=== PATIENT | female | born 1995 | race Caucasian/White ===

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

== ENCOUNTER → 2017-10-18 | Outpatient (CLI) | payer OTHER ==
[2017-10-18 13:20] LABS: BASO % 0.2 % (0.0-1.0); EOS # 0.1 10^3/uL (0.0-0.50); EOS % 0.8 % (0.0-3.0); HEMATOCRIT 38.6 % (36.0-47.0); HEMOGLOBIN 13.3 g/dl (12.0-16.0); IMMATURE GRANULOCYTE % 0.3 % (0-3.0); LYMPH # 2.4 10^3/uL (1.5-6.5); LYMPH % 26.5 % (24.0-44.0); MEAN CORPUSCULAR HEMOGLOBIN 29.4 pg (27.0-33.0); MEAN CORPUSCULAR HGB CONC 34.5 g/dl (32.0-36.5); MEAN CORPUSCULAR VOLUME 85.4 fl (80.0-96.0); MONO # 0.6 10^3/uL (0.0-0.8); MONO % 7.1 % (0.0-5.0); NEUTROPHILS # 5.9 10^3/uL (1.8-7.7); NEUTROPHILS % 65.1 % (36.0-66.0); PLATELET COUNT, AUTOMATED 201 10^3/uL (150-450); RED BLOOD COUNT 4.52 10^6/uL (4.00-5.40); RED CELL DISTRIBUTION WIDTH 12.2 % (11.5-14.5)
[2017-10-18 13:55] LABS: RUBELLA IgG QUALITATIVE IMMUNE (IMMUNE)
[2017-10-18 13:56] LABS: HBsAg Prenatal NEGATIVE (NEGATIVE)
[2017-10-18 14:24] LABS: HIV 1&2 SCREEN CENTAUR NEGATIVE (NEGATIVE)
[2017-10-18 15:18] LABS: CHLAMYDIA DNA AMPLIFICATION POSITIVE (NEGATIVE); GC DNA AMPLIFICATION NEGATIVE (NEGATIVE)
== END ==
LOC: M SMT 11:38
DX: Z34.81 Encounter for supervision of other normal pregnancy, first trimester (principal); Z3A.08 8 weeks gestation of pregnancy
CPT/HCPCS: 86762

== ENCOUNTER 2017-12-03 22:41 | Emergency (ER) | payer OTHER ==
[2017-12-04 00:23] LABS: HEMATOCRIT 36.1 % (36.0-47.0); HEMOGLOBIN 12.6 g/dl (12.0-15.5); MEAN CORPUSCULAR HEMOGLOBIN 29.6 pg (27.0-33.0); MEAN CORPUSCULAR HGB CONC 34.9 g/dl (32.0-36.5); MEAN CORPUSCULAR VOLUME 84.7 fl (80.0-96.0); PLATELET COUNT, AUTOMATED 199 10^3/uL (150-450); RED BLOOD COUNT 4.26 10^6/uL (4.00-5.40); RED CELL DISTRIBUTION WIDTH 12.3 % (11.5-14.5)
[2017-12-04 00:48] LABS: HCG, SERUM QUANTITATIVE 26337 MIU/ML
[2017-12-04 01:27] LABS: AMORPHOUS SEDIMENT RFX SMALL (NEGATIVE); KETONE, URINE AUTO RFX NEGATIVE (NEGATIVE); MUCUS, URINE RFX SMALL (NEGATIVE); NITRITE, URINE AUTO RFX NEGATIVE (NEGATIVE); RBC, URINE AUTO RFX 2 /HPF (0-3); SPECIFIC GRAVITY UR AUTO RFX 1.005 (1.002-1.035); SQUAM EPITHELIAL CELL UR AURFX 2 /HPF (0-6); WBC, URINE AUTO RFX 1 /HPF (0-3)
[2017-12-04 01:31] LABS: LEUKOCYTE ESTERASE UR AUTO RFX 1+ (NEGATIVE)
[2017-12-04 01:42] LABS: CHLAMYDIA DNA AMPLIFICATION POSITIVE (NEGATIVE); GC DNA AMPLIFICATION NEGATIVE (NEGATIVE)
== END 2017-12-04 02:41 | disposition home or self-care (01) ==
LOC: M ED 12-04 02:41
DX: O20.9 Hemorrhage in early pregnancy, unspecified (principal); Z3A.15 15 weeks gestation of pregnancy; O99.342 Other mental disorders complicating pregnancy, second trimester; F41.9 Anxiety disorder, unspecified; F33.9 Major depressive disorder, recurrent, unspecified; O99.332 Smoking (tobacco) complicating pregnancy, second trimester; F17.210 Nicotine dependence, cigarettes, uncomplicated
CPT/HCPCS: 76801

== ENCOUNTER 2017-12-21 11:13 | Observation (INO) | payer OTHER ==
[2017-12-21] MEDS: MORPHINE 4 MG/ML 1ML VIAL/SYRINGE (J2270) IV ×3 (12:35→23:36)
[2017-12-21 12:38] LABS: BASO % 0.1 % (0.0-1.0); EOS % 0.3 % (0.0-3.0); HEMATOCRIT 35.2 % (36.0-47.0); HEMOGLOBIN 12.3 g/dl (12.0-15.5); IMMATURE GRANULOCYTE % 0.6 % (0-3.0); LYMPH # 1.5 10^3/uL (1.5-6.5); LYMPH % 12.5 % (24.0-44.0); MEAN CORPUSCULAR HGB CONC 34.9 g/dl (32.0-36.5); MEAN CORPUSCULAR VOLUME 85.9 fl (80.0-96.0); MONO # 0.6 10^3/uL (0.0-0.8); MONO % 4.8 % (0.0-5.0); NEUTROPHILS # 9.8 10^3/uL (1.8-7.7); NEUTROPHILS % 81.7 % (36.0-66.0); PLATELET COUNT, AUTOMATED 177 10^3/uL (150-450); RED CELL DISTRIBUTION WIDTH 12.5 % (11.5-14.5)
[2017-12-21] MEDS ORDERED: ISOVUE-370 76% 100ML VIAL (Q9967) As Ordered (12:43)
[2017-12-21 12:51] LABS: PROTHROMBIN TIME 13.2 SECONDS (12.4-14.5)
[2017-12-21 12:52] LABS: PARTIAL THROMBOPLASTIN TIME 22.2 SECONDS (26.8-37.9)
[2017-12-21 13:01] LABS: ALBUMIN 3.1 GM/DL (3.2-5.2); ALBUMIN/GLOBULIN RATIO 0.89 (1.00-1.93); ALKALINE PHOSPHATASE 51 U/L (45-117); ALT/SGPT 19 U/L (12-78); ANION GAP 7 MEQ/L (8-16); AST/SGOT 19 U/L (7-37); BILIRUBIN,DIRECT < 0.1 MG/DL (0.0-0.2); BILIRUBIN,TOTAL 0.3 MG/DL (0.2-1.0); BLOOD UREA NITROGEN 3 MG/DL (7-18); CALCIUM LEVEL 8.4 MG/DL (8.5-10.1); CARBON DIOXIDE LEVEL 22 MEQ/L (21-32); CHLORIDE LEVEL 110 MEQ/L (98-107); CREATININE FOR GFR 0.39 MG/DL (0.55-1.30); GLUCOSE, FASTING 72 MG/DL (70-100); POTASSIUM SERUM 3.7 MEQ/L (3.5-5.1); SODIUM LEVEL 139 MEQ/L (136-145); TOTAL PROTEIN 6.6 GM/DL (6.4-8.2)
[2017-12-21] MEDS: ACETAMINOPHEN TAB 650MG DOSE (2X325MG) PO (15:45)
[2017-12-21] MEDS: ONDANSETRON 4MG/2ML VIAL (J2405) IV ×2 (16:19→23:35)
[2017-12-21] MEDS: NS 1,000 ML IV ×2 (16:43→23:35)
[2017-12-21] MEDS ORDERED: MORPHINE 4 MG/ML 1ML VIAL/SYRINGE (J2270) IV (21:00)
[2017-12-21] MEDS: FAMOTIDINE 20 MG TAB PO (21:00)
[2017-12-21] MEDS ORDERED: PROMETHAZINE INJ 25 MG/ML VIAL (J2550) IV (21:00)
[2017-12-22] MEDS: MORPHINE 4 MG/ML 1ML VIAL/SYRINGE (J2270) IV ×5 (04:07→18:33)
[2017-12-22 06:03] LABS: HEMATOCRIT 30.3 % (36.0-47.0); HEMOGLOBIN 10.5 g/dl (12.0-15.5); MEAN CORPUSCULAR HEMOGLOBIN 29.7 pg (27.0-33.0); MEAN CORPUSCULAR HGB CONC 34.7 g/dl (32.0-36.5); MEAN CORPUSCULAR VOLUME 85.8 fl (80.0-96.0); PLATELET COUNT, AUTOMATED 166 10^3/uL (150-450); RED BLOOD COUNT 3.53 10^6/uL (4.00-5.40); RED CELL DISTRIBUTION WIDTH 12.7 % (11.5-14.5); WHITE BLOOD COUNT 8.4 10^3/uL (4.0-10.0)
[2017-12-22 06:19] LABS: ANION GAP 9 MEQ/L (8-16); BLOOD UREA NITROGEN 3 MG/DL (7-18); CALCIUM LEVEL 8.2 MG/DL (8.5-10.1); CARBON DIOXIDE LEVEL 21 MEQ/L (21-32); CHLORIDE LEVEL 112 MEQ/L (98-107); CREATININE FOR GFR 0.39 MG/DL (0.55-1.30); GLUCOSE, FASTING 71 MG/DL (70-100); POTASSIUM SERUM 3.4 MEQ/L (3.5-5.1); SODIUM LEVEL 142 MEQ/L (136-145)
[2017-12-22] MEDS: NS 1,000 ML IV ×2 (06:20→13:21)
[2017-12-22] MEDS ORDERED: NORCO, ANEXSIA 5/325MG TABLET (HYDROcodone/ACETAMINOPHEN) PO (08:30)
[2017-12-22] MEDS: FAMOTIDINE 20 MG TAB PO ×2 (08:48→20:05)
[2017-12-22] MEDS: NORCO, ANEXSIA 5/325MG TABLET (HYDROcodone/ACETAMINOPHEN) PO ×3 (08:49→20:06)
[2017-12-22] MEDS: ONDANSETRON 4MG/2ML VIAL (J2405) IV ×2 (11:21→20:10)
[2017-12-23] MEDS: MORPHINE 4 MG/ML 1ML VIAL/SYRINGE (J2270) IV ×4 (00:01→10:59)
[2017-12-23] MEDS: ONDANSETRON 4MG/2ML VIAL (J2405) IV (02:17)
[2017-12-23 05:49] LABS: HEMOGLOBIN 9.8 g/dl (12.0-15.5); MEAN CORPUSCULAR HEMOGLOBIN 30.2 pg (27.0-33.0); MEAN CORPUSCULAR VOLUME 86.2 fl (80.0-96.0); PLATELET COUNT, AUTOMATED 163 10^3/uL (150-450); RED BLOOD COUNT 3.25 10^6/uL (4.00-5.40); RED CELL DISTRIBUTION WIDTH 12.7 % (11.5-14.5); WHITE BLOOD COUNT 7.1 10^3/uL (4.0-10.0)
[2017-12-23 06:08] LABS: ANION GAP 4 MEQ/L (8-16); BLOOD UREA NITROGEN 3 MG/DL (7-18); CALCIUM LEVEL 8.1 MG/DL (8.5-10.1); CARBON DIOXIDE LEVEL 26 MEQ/L (21-32); CHLORIDE LEVEL 110 MEQ/L (98-107); CREATININE FOR GFR 0.39 MG/DL (0.55-1.30); GLUCOSE, FASTING 76 MG/DL (70-100); POTASSIUM SERUM 3.2 MEQ/L (3.5-5.1); SODIUM LEVEL 140 MEQ/L (136-145)
[2017-12-23] MEDS: NORCO, ANEXSIA 5/325MG TABLET (HYDROcodone/ACETAMINOPHEN) PO (08:51)
[2017-12-23] MEDS: FAMOTIDINE 20 MG TAB PO (08:51)
[2017-12-23] MEDS ORDERED: ONDANSETRON 4 MG TAB (S0181) PO (16:00)
[2017-12-23] MEDS ORDERED: PERCOCET 5MG/325MG TAB PO ×2 (16:00)
== END 2017-12-23 16:30 | disposition home or self-care (01) ==
LOC: M ED 11:13 → M ED INP 20:58 → M MS5PR 23:15
DX: O9A.212 Injury, poisoning and certain other consequences of external causes complicating pregnancy, second trimester (principal); O21.9 Vomiting of pregnancy, unspecified; R10.9 Unspecified abdominal pain; S00.81XA Abrasion of other part of head, initial encounter; M25.511 Pain in right shoulder; M25.572 Pain in left ankle and joints of left foot; V48.6XXA Car passenger injured in noncollision transport accident in traffic accident, initial encounter; Y92.410 Unspecified street and highway as the place of occurrence of the external cause; Z3A.18 18 weeks gestation of pregnancy
CPT/HCPCS: J2270

== ENCOUNTER → 2017-12-29 | Outpatient (CLI) | payer OTHER | LOC: M RAD 14:32 | DX: Z36.9 Encounter for antenatal screening, unspecified (principal); Z3A.19 19 weeks gestation of pregnancy | CPT/HCPCS: 76816 ==

== ENCOUNTER → 2018-01-18 | Outpatient (CLI) | payer OTHER | LOC: M RAD 12:03 | DX: Z34.82 Encounter for supervision of other normal pregnancy, second trimester (principal); Z3A.20 20 weeks gestation of pregnancy | CPT/HCPCS: 76816 ==

== ENCOUNTER → 2018-03-02 | Outpatient (CLI) | payer OTHER ==
[2018-03-02 13:51] LABS: HEMOGLOBIN 11.5 g/dl (12.0-15.5); MEAN CORPUSCULAR HEMOGLOBIN 30.5 pg (27.0-33.0); MEAN CORPUSCULAR HGB CONC 33.8 g/dl (32.0-36.5); MEAN CORPUSCULAR VOLUME 90.2 fl (80.0-96.0); PLATELET COUNT, AUTOMATED 200 10^3/uL (150-450); RED BLOOD COUNT 3.77 10^6/uL (4.00-5.40); RED CELL DISTRIBUTION WIDTH 12.4 % (11.5-14.5); WHITE BLOOD COUNT 9.3 10^3/uL (4.0-10.0)
[2018-03-02 14:12] LABS: GLUCOSE CHALLENGE TEST 1 HOUR 95 MG/DL (LESS THAN 140)
== END ==
LOC: M LAB 11:46
DX: Z34.82 Encounter for supervision of other normal pregnancy, second trimester (principal); Z3A.00 Weeks of gestation of pregnancy not specified
CPT/HCPCS: 82950

== ENCOUNTER → 2018-03-08 | Outpatient (REF) | payer OTHER ==
[2018-03-08 22:44] LABS: CHLAMYDIA DNA AMPLIFICATION NEGATIVE (NEGATIVE); GC DNA AMPLIFICATION NEGATIVE (NEGATIVE)
== END ==
LOC: M LAB REF 17:10
DX: Z34.83 Encounter for supervision of other normal pregnancy, third trimester (principal)

== ENCOUNTER → 2018-05-04 | Outpatient (REF) | payer OTHER | LOC: M LAB REF 09:28 | DX: Z34.83 Encounter for supervision of other normal pregnancy, third trimester (principal); Z36.89 Encounter for other specified antenatal screening | CPT/HCPCS: 87081 ==

== ENCOUNTER 2018-05-12 18:22 | Outpatient (CLI) | payer OTHER | END 2018-05-12 19:30 | disposition home or self-care (01) | LOC: M LDO 18:22 | DX: O47.1 False labor at or after 37 completed weeks of gestation (principal); Z3A.37 37 weeks gestation of pregnancy | CPT/HCPCS: 59025 ==

== ENCOUNTER 2018-06-03 07:48 | Inpatient (IN) | payer OTHER ==
[2018-06-03 09:16] LABS: HEMOGLOBIN 12.1 g/dl (12.0-15.5); MEAN CORPUSCULAR HEMOGLOBIN 28.6 pg (27.0-33.0); MEAN CORPUSCULAR HGB CONC 33.6 g/dl (32.0-36.5); MEAN CORPUSCULAR VOLUME 85.1 fl (80.0-96.0); PLATELET COUNT, AUTOMATED 193 10^3/uL (150-450); RED BLOOD COUNT 4.23 10^6/uL (4.00-5.40); RED CELL DISTRIBUTION WIDTH 13.3 % (11.5-14.5); WHITE BLOOD COUNT 10.8 10^3/uL (4.0-10.0)
[2018-06-03] MEDS: LACTATED RINGER'S 1000 ML IV (09:46)
[2018-06-03] MEDS: LR 1,000 ML IV ×2 (09:47→12:38)
[2018-06-03] MEDS ORDERED: FENTANYL 2MCG/ML ROPIVACAINE 0.2% IN 0.9% NACL 200ML IVBAG As Ordered (09:57)
[2018-06-03] MEDS ORDERED: diphenhydrAMINE INJ 50MG/ML VIAL (J1200) IV (11:15)
[2018-06-03] MEDS ORDERED: EPIDURAL/PCA KEYS XX (11:15)
[2018-06-03] MEDS ORDERED: FENTANYL/ROPIVACAINE/NACL BAG 200 ML EPIDURAL (11:15)
[2018-06-03] MEDS ORDERED: EPIDURAL COMMENT XX (11:15)
[2018-06-03] MEDS ORDERED: NALOXONE INJ 0.4 MG/1 ML VIAL (J2310) IV (11:15)
[2018-06-03] MEDS ORDERED: ePHEDrine SULFATE 25 MG/5 ML(5MG/ML) SYRINGE IV (11:15)
[2018-06-03] MEDS ORDERED: REFRIGERATOR IV KEYS XX (11:15)
[2018-06-03 12:35] LABS: AMPHETAMINES URINE REFLEX NEGATIVE (NEGATIVE); BARBITURATES URINE REFLEX NEGATIVE (NEGATIVE); BENZODIAZEPINES URINE REFLEX NEGATIVE (NEGATIVE); COCAINE METABOLITE URINE REFLE NEGATIVE (NEGATIVE); METHADONE URINE REFLEX NEGATIVE (NEGATIVE); OPIATES URINE REFLEX NEGATIVE (NEGATIVE); PHENCYCLIDINE URINE REFLEX NEGATIVE (NEGATIVE)
[2018-06-03] MEDS: OXYTOCIN DRIP 30 UNITS in APPROPRIATE DILUENT 1 EA IV (12:38)
[2018-06-03 13:03] LABS: CANNABINOIDS URINE REFLEX PENDING CONFIRMATION (NEGATIVE)
[2018-06-03] MEDS: ONDANSETRON 4MG/2ML VIAL (J2405) IV (17:03)
[2018-06-03 18:56] LABS: CORD GAS ABE V -7.1; CORD GAS HCO3 V 19.3 MEQ/L; CORD GAS O2 SAT V 68.4 %; CORD GAS PO2 V 29.6 mmHg; CORD GAS SBC V 18.1 MEQ/L; CORD GAS TCO2 V 20.6 MEQ/L
[2018-06-03 19:00] LABS: CORD GAS ABE A -8.5; CORD GAS HCO3 A 21.5 MEQ/L; CORD GAS O2 SAT A < 15.0 %; CORD GAS PCO2 A 62.2 mmHg; CORD GAS PH A 7.156 UNITS; CORD GAS PO2 A 10.6 mmHg; CORD GAS TCO2 A 23.4 MEQ/L
[2018-06-03] MEDS ORDERED: OXYTOCIN DRIP 30 UNITS in APPROPRIATE DILUENT 1 EA IV (19:23)
[2018-06-03] MEDS ORDERED: RHOGAM 300 MCG (1500 IU) INJ (J2790) IM (19:30)
[2018-06-03] MEDS ORDERED: DIBUCAINE 1% OINTMENT 30GM TOP (19:30)
[2018-06-03] MEDS ORDERED: METHYLERGONOVINE MALEATE 0.2 MG TAB PO (19:30)
[2018-06-03] MEDS ORDERED: MEASLES,MUMPS,RUBELLA VACCINE INJ (MMR-II) (90707) SC (19:30)
[2018-06-03] MEDS ORDERED: DOCUSATE SODIUM 100 MG CAP PO (19:30)
[2018-06-04] MEDS: ACETAMINOPHEN 500 MG TAB PO (09:15)
[2018-06-04] MEDS: PRENATAL VITAMINS CHEWABLE TABLET PO (09:15)
[2018-06-04] MEDS ORDERED: FIORICET TAB PO (09:30)
[2018-06-04] MEDS: IBUPROFEN 800 MG TAB PO (19:02)
[2018-06-05] MEDS: PRENATAL VITAMINS CHEWABLE TABLET PO (08:05)
[2018-06-05] MEDS: INFLUENZA QUADRIVALENT PF VACCINE 0.5ML SYRINGE (90686) IM (11:06)
[2018-06-09 08:39] LABS: Cannabinoid Positive (.); GC Carboxy THC 558 ng/mL (Cutoff=10)
== END 2018-06-05 13:10 | disposition home or self-care (01) | DRG 560 ==
LOC: M LDO 07:48 → M LDI 08:28 → M OBS 21:00
PROC: 10E0XZZ Delivery of Products of Conception, External Approach (ICD-10-PCS; principal; 2018-06-03)
PROC: 0HQ9XZZ Repair Perineum Skin, External Approach (ICD-10-PCS; 2018-06-03)
PROC: 10907ZC Drainage of Amniotic Fluid, Therapeutic from Products of Conception, Via Natural or Artificial Opening (ICD-10-PCS; 2018-06-03)
DX: O48.0 Post-term pregnancy (principal); Z3A.41 41 weeks gestation of pregnancy; O69.81X0 Labor and delivery complicated by cord around neck, without compression, not applicable or unspecified; O70.0 First degree perineal laceration during delivery; Z37.0 Single live birth

== ENCOUNTER → 2018-08-03 | Outpatient (REF) | payer OTHER | LOC: M LAB REF 19:06 | DX: Z12.4 Encounter for screening for malignant neoplasm of cervix (principal); R87.612 Low grade squamous intraepithelial lesion on cytologic smear of cervix (LGSIL) | CPT/HCPCS: 88142 ==

== ENCOUNTER 2020-01-06 22:50 | Emergency (ER) | payer OTHER ==
[~2020-01-06] VITALS: Ht 167.6 cm; Wt 95.5 kg
[~2020-01-06 22:50] MED LIST: ACET-683 PO; MOTR200T44 PO; ONDA-83 PO; PERCOCET PO; PRENTAB55 PO
[2020-01-06 23:06] VITALS: BP 134/83
[2020-01-06] MEDS ORDERED: LARI1TAB3 (23:15)
== END 2020-01-06 23:20 | disposition home or self-care (01) ==
LOC: M ED 22:50
DX: F43.20 Adjustment disorder, unspecified (principal); Z63.9 Problem related to primary support group, unspecified; Z91.5 Personal history of self-harm; F33.9 Major depressive disorder, recurrent, unspecified; F41.9 Anxiety disorder, unspecified; Z79.3 Long term (current) use of hormonal contraceptives; Z88.1 Allergy status to other antibiotic agents; F17.210 Nicotine dependence, cigarettes, uncomplicated; F12.20 Cannabis dependence, uncomplicated

== ENCOUNTER → 2020-07-04 | Outpatient (REF) | payer OTHER ==
[~2020-07-04] MED LIST changes: +LARI1TAB3
[2020-07-04 16:09] LABS: HEMATOCRIT 35.5 % (36.0-47.0); HEMOGLOBIN 11.5 g/dl (12.0-15.5); MEAN CORPUSCULAR HGB CONC 32.4 g/dl (32.0-36.5); MEAN CORPUSCULAR VOLUME 89.6 fl (80.0-96.0); PLATELET COUNT, AUTOMATED 181 10^3/uL (150-450); RED BLOOD COUNT 3.96 10^6/uL (4.00-5.40); WHITE BLOOD COUNT 8.1 10^3/uL (4.0-10.0)
[2020-07-04 17:37] LABS: HEPATITIS C VIRUS ABY INDEX 0.1 INDEX (<0.8); HIV 1&2 SCREEN CENTAUR NEGATIVE (NEGATIVE)
== END ==
LOC: M PLALAB 12:30
PROVIDERS: ATTEND Specialist
DX: Z34.81 Encounter for supervision of other normal pregnancy, first trimester (principal); Z3A.00 Weeks of gestation of pregnancy not specified

== ENCOUNTER → 2020-07-05 | Outpatient (CLI) | payer OTHER ==
--- NOTE | 2020-07-05 13:53 | REP ---
INDICATION: ANATOMY. COMPARISON: None. FINDINGS: , Para LMP = weeks days, VANESSA(LMP) = Expected GA/1st sono = weeks days, VANESSA (expected) = Today's sono findings = 21 weeks 1 days, VANESSA (today's sono) = 11/21/2020 Number: 1 Position: Cephalic Heart Rate: 158 BPM S/D Ratio: NA Placental Position: Anterior Placenta Previa: No low Lying: No abruption: No Amniotic Fluid Volume: Within normal limits ROLAND: NA ROLAND: Normal Range: NA cm Cervix Length 3.1 cm, and MEASUREMENTS: BPD: 4.6 cm HC: 16.8 cm AC: 14.6 cm FL: 3.4 cm Estimated Weight: 338 Grams 49 percentile Lateral Ventricle NOT OBTAINED mm Cerebellum not obtained mm = not obtained weeks Normal. The following structures are visualized and are unremarkable: Cranium, cavum, cerebellum, posterior fossa-cisterna magna, choroid plexus, midline falx, lateral ventricles, orbits, face-profile, face-lips/mouth, neck,, diaphragm, stomach, kidneys, bladder, abdominal wall, cord insertion, umbilical arteries, 3-vessel cord, color Doppler, spine and upper and lower extremities. Four-chamber heart and ventricular outflow tracts were suboptimally visualized. IMPRESSION: Follow-up examination recommended for better visualization of four-chamber heart and ventricular outflow tracts. <Electronically signed by Solo Haas > 07/05/20 [id number]
== END ==
LOC: M WHC 11:08
PROVIDERS: ATTEND Specialist
DX: Z34.82 Encounter for supervision of other normal pregnancy, second trimester (principal); Z36.89 Encounter for other specified antenatal screening; Z3A.21 21 weeks gestation of pregnancy

== ENCOUNTER → 2020-07-31 | Outpatient (REF) | payer OTHER | LOC: M PLALAB 16:56 | PROVIDERS: ATTEND Advanced Practice Midwife | DX: Z34.92 Encounter for supervision of normal pregnancy, unspecified, second trimester (principal) ==

== ENCOUNTER → 2020-08-02 | Outpatient (CLI) | payer OTHER | LOC: M WHC 12:04 | PROVIDERS: ATTEND Advanced Practice Midwife | DX: Z34.92 Encounter for supervision of normal pregnancy, unspecified, second trimester (principal); Z3A.00 Weeks of gestation of pregnancy not specified; Z53.9 Procedure and treatment not carried out, unspecified reason ==

== ENCOUNTER → 2020-08-06 | Outpatient (CLI) | payer OTHER ==
--- NOTE | 2020-08-06 15:23 | REP ---
INDICATION: F/U ANATOMY. COMPARISON: 07/05/2020. TECHNIQUE: Real-time sonographic evaluation of the gravid uterus performed. FINDINGS: Estimated gestational age is24 weeks 5 days, EDC 11/21/2020. Today's measurements indicate appropriate growth. Presentation: Oblique Placenta anterior, grade 1, without evidence of placenta previa. heart rate is recorded at 139 beats per minute. Amniotic fluid is subjectively normal. Closed cervical length is measured at 3.7 cm. Biometry chart: BPD: 56 mm, 23 weeks 0 days, percentile. HC: 219 mm, 24 weeks 0 days, 27th percentile AC: 202 mm, 24 weeks 6 days, 52nd percentile Femur length: 44 mm, 24 weeks 4 days, 46th percentile HC to AC ratio: 1.08, normal range 1.02-1.21. Estimated weight: 711g, 35th percentile. On the prior study the four-chamber heart and ventricular outflow tracts were not well visualized. The structures are visualized on today's exam in appear grossly unremarkable. IMPRESSION: Viable single intrauterine gestation as above. <Electronically signed by Travis Rodriguez > 08/06/20 [id number]
== END ==
LOC: M WHC 10:46
PROVIDERS: ATTEND Advanced Practice Midwife
DX: Z34.92 Encounter for supervision of normal pregnancy, unspecified, second trimester (principal); Z3A.24 24 weeks gestation of pregnancy

== ENCOUNTER → 2020-08-30 | Outpatient (REF) | payer OTHER | LOC: M PLALAB 09:22 | PROVIDERS: ATTEND Obstetrics & Gynecology | DX: Z34.93 Encounter for supervision of normal pregnancy, unspecified, third trimester (principal); Z3A.29 29 weeks gestation of pregnancy; Z53.9 Procedure and treatment not carried out, unspecified reason ==

== ENCOUNTER → 2020-08-30 | Outpatient (REF) | payer OTHER | LOC: M SFHCWAGY 17:00 | PROVIDERS: ATTEND Obstetrics & Gynecology | DX: Z3A.29 29 weeks gestation of pregnancy (principal) ==

== ENCOUNTER → 2020-09-06 | Outpatient (REF) | payer OTHER ==
[2020-09-06 15:29] LABS: HEMATOCRIT 32.9 % (36.0-47.0); HEMOGLOBIN 10.4 g/dl (12.0-15.5); MEAN CORPUSCULAR HEMOGLOBIN 29.2 pg (27.0-33.0); MEAN CORPUSCULAR HGB CONC 31.6 g/dl (32.0-36.5); MEAN CORPUSCULAR VOLUME 92.4 fl (80.0-96.0); PLATELET COUNT, AUTOMATED 194 10^3/uL (150-450); RED BLOOD COUNT 3.56 10^6/uL (4.00-5.40); WHITE BLOOD COUNT 9.3 10^3/uL (4.0-10.0)
== END ==
LOC: M PLALAB 11:41
PROVIDERS: ATTEND Advanced Practice Midwife
DX: Z34.92 Encounter for supervision of normal pregnancy, unspecified, second trimester (principal)

== ENCOUNTER → 2020-10-17 | Outpatient (REF) | payer OTHER | LOC: M SFHCPLAZ 19:16 | PROVIDERS: ATTEND Advanced Practice Midwife | DX: Z3A.36 36 weeks gestation of pregnancy (principal) ==

== ENCOUNTER → 2020-10-17 | Outpatient (CLI) | payer OTHER ==
--- NOTE | 2020-10-17 17:19 | REP ---
INDICATION: DEACREASED MOVEMENT , GROWTH. COMPARISON: Comparison study August 06, 2020.. TECHNIQUE: Transabdominal obstetric sonography. FINDINGS: Scanning through the gravid uterus demonstrates a viable single intrauterine gestation in cephalic lie. motion is observed and heart rate is recorded at 121 beats per minute. A anterior placenta is seen, grade 2, without evidence of placenta previa. Closed cervical length is measured at 3.0 cm transabdominally. No extrauterine abnormality is observed. Amniotic fluid is subjectively normal. ROLAND is normal 17.4 cm.. The following anatomic structures are again identified felt to be unremarkable: cranium, right and left kidney, urinary bladder, spine, three-vessel cord.. Biometry chart: BPD 8.3 cm, 33 weeks 2 days Head circumference 31.1 cm, 34 weeks 5 days Abdominal circumference 31.5 cm, 35 weeks 3 days Femur length 6.6 cm, 33 weeks 6 days Humeral length 5.9 cm, 34 weeks 0 days new line HC AC ratio normal 0.99 Cephalic index normal 0.73 Estimated weight 2487 g, 5 lb 7 oz, 19th percentile for 36 weeks 0 days Biophysical profile score 8 out of a possible 8 ROLAND normal 17.4 cm IMPRESSION: Viable single intrauterine gestation at 34 weeks 2 days by today's composite sonographic criteria. VANESSA by today's sonography November 26, 2020. No complication identified. Expected gestational age estimate based on prior sonography is 36 weeks 0 days. VANESSA by prior sonography 14 November 2020. Estimated weight 19th percentile. <Electronically signed by Reid Hernandez > 10/17/20 [id number]
== END ==
LOC: M WHC 15:16
PROVIDERS: ATTEND Advanced Practice Midwife
DX: O36.8130 Decreased fetal movements, third trimester, not applicable or unspecified (principal); Z3A.34 34 weeks gestation of pregnancy

== ENCOUNTER 2020-11-17 17:15 | Inpatient (IN) | payer OTHER ==
[~2020-11-17] VITALS: Ht 167.6 cm; Wt 100.4 kg
[2020-11-17 17:35] VITALS: BP 129/67
[2020-11-17] MEDS ORDERED: IRON65TA2 PO (17:41)
[2020-11-17] MEDS ORDERED: LACTATED RINGER'S 1000 ML IV STA (18:14)
[2020-11-17] MEDS ORDERED: LR 1,000 ML IV SCH (18:14)
--- NOTE | 2020-11-17 18:22 | HPEPDOC ---
Obstetrical History & Physical General Date of Admission Nov 17, 2020 at 18:09 History of Present Illness 25 yo female at 40 3/7 weeks by 21 week ultrasound (EDC=11/14/2020) presents with regular contractions throughout the day. They increased in frequency and intensity. no vaginal bleeding. Chief Complaint: Contractions, term Information Provided By: Patient Age: 25 : 2 Term: 1 Pre-term: 0 Abortions: 0 Livin Care Care: Good Care Dating Final EDC: Nov 14, 2020 Final EDC by: 2nd trimester (US) Antepartum Course Diagnos(e)s Late entry to care. Started 20 weeks 07/2020 treated for Chlamydia Past Medical History Past Obstetrical History : Past Obstetrical History: Multigravida Past Medical History Medical History OB Hx: 43 week , no complications Medical hx: Chlamydia 07/2020 Family History Significant Family History: No pertinent family hx Social History Marital Status: Single Family situation: Spouse/partner home Psychosocial History: No pertinent psych hx * Smoker: current smoker Alcohol: Denies Allergies Coded Allergies: clarithromycin (Verified Allergy, Mild, Dizziness, 01/06/20) Medications Scheduled Ferrous Sulfate (Iron) 325 Mg Tablet, 1 TAB PO BID [id number]/Iron Fum/Folic/Docusate ( 19 Tablet) 1 Tab Tab, 1 TAB PO DAILY Physical Examination Physical Examination GENERAL: Alert and oriented times three. BREAST: . ABDOMEN: Gravid and non-tender to touch. FETUS: Is vertex (VTX) by sterile vaginal examination (SVE), fetus is vertex (VTX) by César. HEART RATE: Regular rate and rhythm. LUNGS: Clear to auscultation (CTA). EXTREMITIES: No edema. No clonus. Deep tendon reflexes (DTRs) + . Vital Signs/I&O Vital Signs Date Time Temp Pulse Resp B/P (MAP) Pulse Ox O2 Delivery O2 Flow Rate FiO2 11/17/20 17:35 91 129/67 (87) 11/17/20 17:34 98.3 18 Laboratory Data 24H LABS Laboratory Tests 2 11/17/20 18:14: Serology Scanned Report Hepatitis B Testing Pertinent Laboratoy Data Blood Type: A+ Group B Streptococcus: Negative Vaginal Examination Dilation: 5 cm Effacement: 90% Station: -2 Cervical Consistency: Soft Cervical Position: Posterior Presentation: Cephalic presentation Assessment Variability: Moderate Accelerations: Positive Decelerations: None Tocometer Contractions: Yes Frequency: regular Assessment/Plan Assessment Pt is a 25-year-old (G)2 para (P)1 at 40+3 weeks by 21-week ultrasound presents to Labor and Delivery in active labor. Plan Admit and orient. 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 Group B Streptococcus (GBS) negative. Labs and intravenous (IV) per unit protocol. Anticipate normal spontaneous delivery (). C-S as appropriate. LUCIA JACOBSON MD Nov 17, 2020 18:22
[2020-11-17 18:53] LABS: MEAN CORPUSCULAR HEMOGLOBIN 29.6 pg (27.0-33.0); MEAN CORPUSCULAR HGB CONC 33.3 g/dl (32.0-36.5); MEAN CORPUSCULAR VOLUME 88.7 fl (80.0-96.0); PLATELET COUNT, AUTOMATED 240 10^3/uL (150-450); RED BLOOD COUNT 3.72 10^6/uL (4.00-5.40); WHITE BLOOD COUNT 13.4 10^3/uL (4.0-10.0)
[2020-11-17] MEDS ORDERED: BUTORPHANOL 2 MG/ML INJ (J0595) IV ONE (20:05)
[2020-11-17] MEDS ORDERED: PROMETHAZINE INJ 25 MG/ML VIAL (J2550) IV ONE (20:05)
[2020-11-17 21:09] VITALS: BP 140/65
[2020-11-17 22:17] VITALS: BP 128/61
[2020-11-17] MEDS: OXYTOCIN DRIP 30 UNITS in IV 1 EA IV SCH ×2 (22:18→23:43)
[2020-11-17 22:48] VITALS: BP 134/63
[2020-11-17 23:17] VITALS: BP 138/67
[2020-11-17 23:48] VITALS: BP 137/65
[2020-11-18] VITALS (7 sets, daily range): BP systolic 120–148; BP diastolic 58–78
[2020-11-18] MEDS ORDERED: MEASLES,MUMPS,RUBELLA VACCINE INJ (MMR-II) (90707) SC SCH (01:10)
[2020-11-18] MEDS ORDERED: OXYTOCIN DRIP 30 UNITS in IV 1 EA IV ONE (01:10)
[2020-11-18] MEDS ORDERED: IBUPROFEN 600MG TAB PO PRN (01:10)
[2020-11-18] MEDS ORDERED: DOCUSATE SODIUM 100MG CAPSULE PO PRN (01:10)
[2020-11-18] MEDS ORDERED: ACETAMINOPHEN TAB 650MG DOSE (2X325MG) PO PRN (01:10)
[2020-11-18] MEDS ORDERED: IBUPROFEN 800 MG TAB PO PRN (01:10)
[2020-11-18] MEDS ORDERED: DIBUCAINE 1% OINTMENT 30GM TOP PRN (01:10)
[2020-11-18] MEDS ORDERED: METHYLERGONOVINE MALEATE 0.2 MG TAB PO PRN (01:10)
[2020-11-18] MEDS ORDERED: RHOGAM 300 MCG (1500 IU) INJ (J2790) IM SCH (01:10)
[2020-11-18] MEDS ORDERED: ACETAMINOPHEN 500 MG TAB PO PRN (01:10)
--- NOTE | 2020-11-18 01:15 | DNPDOC ---
[facility] Delivery Note Delivery Note DATE OF DELIVERY: November 18, 2020 PREDELIVERY DIAGNOSIS: 40-3/7 weeks' gestation and labor. POST DELIVERY DIAGNOSIS: Delivered. PROCEDURE: Spontaneous vaginal delivery AUDIOVISUAL PRODUCTION SPECIALIST: Dr. Lucia Jacobson MD ANESTHESIA: none. ESTIMATED BLOOD LOSS: 300 mL. FINDINGS: 6 pound 12 ounce female , Score 8/9, nuchal cord times 2, moderate meconium present DELIVERY SUMMARY: Patient is a [age]-year-old 2 now para 2 who was admitted to labor and delivery for active labor. She had Pitocin started. AROM performed. After a 5 minute second stage of labor she had a spontaneous vaginal delivery of a 6 lb. 12 oz. female infant, score 8, 9. Moderate meconium present. Infant handed to mother. Cord doubly clamped and cut. Placenta delivered spontaneously and appeared intact. No lacerations present. IV Pitocin given after delivery of the placenta. Sponge counts correct. LUCIA JACOBSON MD Nov 18, 2020 01:15
[2020-11-18] MEDS: PRENATAL VITAMINS CHEWABLE TABLET PO SCH (09:04)
[2020-11-19 06:00] VITALS: BP 133/76
[2020-11-19] MEDS: PRENATAL VITAMINS CHEWABLE TABLET PO SCH (08:54)
[2020-11-19] MEDS ORDERED: ACET-683 PO (10:32)
[2020-11-19] MEDS ORDERED: IBUP80TA PO (10:32)
== END 2020-11-19 13:34 | disposition home or self-care (01) | DRG 560 ==
LOC: M LDO 17:15 → M LDI 18:09 → M OBS 11-18 03:04
PROVIDERS: ADMIT Specialist; ATTEND Specialist
PROC: 10E0XZZ Delivery of Products of Conception, External Approach (ICD-10-PCS; principal; 2020-11-17)
PROC: 10907ZC Drainage of Amniotic Fluid, Therapeutic from Products of Conception, Via Natural or Artificial Opening (ICD-10-PCS; 2020-11-18)
DX: O48.0 Post-term pregnancy (principal); Z3A.40 40 weeks gestation of pregnancy; Z37.0 Single live birth; O77.0 Labor and delivery complicated by meconium in amniotic fluid; O99.334 Smoking (tobacco) complicating childbirth; F17.210 Nicotine dependence, cigarettes, uncomplicated

== ENCOUNTER 2021-11-18 11:12 | Emergency (ER) | payer OTHER ==
[~2021-11-18] VITALS: Ht 165.1 cm; Wt 113.6 kg
[~2021-11-18 11:12] MED LIST changes: +IBUP80TA PO; +IRON65TA2 PO
[2021-11-18 11:36] LABS: HEMATOCRIT 37.3 % (36.0-47.0); HEMOGLOBIN 11.8 g/dl (12.0-15.5); MEAN CORPUSCULAR HEMOGLOBIN 25.9 pg (27.0-33.0); MEAN CORPUSCULAR HGB CONC 31.6 g/dl (32.0-36.5); MEAN CORPUSCULAR VOLUME 81.8 fl (80.0-96.0); PLATELET COUNT, AUTOMATED 258 10^3/uL (150-450); RED BLOOD COUNT 4.56 10^6/uL (4.00-5.40); WHITE BLOOD COUNT 10.4 10^3/uL (4.0-10.0)
[2021-11-18 11:39] VITALS: BP 155/75
[2021-11-18 12:03] LABS: AMPHETAMINES LEVEL URINE NEGATIVE (NEGATIVE); BARBITURATES URINE NEGATIVE (NEGATIVE); BENZODIAZEPINES URINE NEGATIVE (NEGATIVE); CANNABINOIDS URINE POSITIVE (NEGATIVE); COCAINE METABOLITE URINE POSITIVE (NEGATIVE); METHADONE URINE NEGATIVE (NEGATIVE); OPIATES URINE NEGATIVE (NEGATIVE); PHENCYCLIDINE URINE NEGATIVE (NEGATIVE)
[2021-11-18 12:23] LABS: HCG, SERUM QUALITATIVE POSITIVE (NEGATIVE)
[2021-11-18 12:32] LABS: ACETAMINOPHEN LEVEL < 2.0 UG/ML (10.0-30.0); ALBUMIN 4.1 GM/DL (3.2-5.2); ALT/SGPT 32 U/L (12-78); BILIRUBIN,DIRECT < 0.1 MG/DL (0.0-0.2); BILIRUBIN,TOTAL 0.4 MG/DL (0.2-1.0); BLOOD UREA NITROGEN 8 MG/DL (7-18); CALCIUM LEVEL 9.2 MG/DL (8.5-10.1); CARBON DIOXIDE LEVEL 28 MEQ/L (21-32); CHLORIDE LEVEL 109 MEQ/L (98-107); CREATININE FOR GFR 0.75 MG/DL (0.55-1.30); ETHYL ALCOHOL (ETHANOL) < 0.003 % (0.000-0.010); GLOMERULAR FILTRATION RATE > 60.0 (>60); GLUCOSE, FASTING 82 MG/DL (70-100); POTASSIUM SERUM 4.1 MEQ/L (3.5-5.1); SALICYLATE LEVEL 3.4 MG/DL (5.0-30.0); SODIUM LEVEL 142 MEQ/L (136-145); TOTAL PROTEIN 7.6 GM/DL (6.4-8.2)
== END 2021-11-18 14:19 | disposition home or self-care (01) ==
LOC: M ED 11:12
DX: F43.20 Adjustment disorder, unspecified (principal); F12.10 Cannabis abuse, uncomplicated; F14.10 Cocaine abuse, uncomplicated; Z88.8 Allergy status to other drugs, medicaments and biological substances; Z33.1 Pregnant state, incidental

== ENCOUNTER 2023-11-02 19:22 | Emergency (ER) | payer OTHER | END 2023-11-02 19:49 | disposition left against medical advice (07) | LOC: M ED 19:22 | DX: Z53.21 Procedure and treatment not carried out due to patient leaving prior to being seen by health care provider (principal) ==

== ENCOUNTER 2024-11-29 16:29 | Emergency (ER) | payer OTHER ==
[~2024-11-29] VITALS: Ht 175.3 cm; Wt 99.7 kg
[2024-11-29 18:09] LABS: BASO % 0.2 % (0.0-1.0); EOS % 0.4 % (0.0-3.0); HEMATOCRIT 37.4 % (36.0-47.0); HEMOGLOBIN 12.1 g/dl (12.0-15.5); LYMPH # 1.4 10^3/uL (1.5-5.0); LYMPH % 30.2 % (24.0-44.0); MEAN CORPUSCULAR HEMOGLOBIN 28.4 pg (27.0-33.0); MEAN CORPUSCULAR HGB CONC 32.4 g/dl (32.0-36.5); MEAN CORPUSCULAR VOLUME 87.8 fl (80.0-96.0); MONO # 0.4 10^3/uL (0.0-0.8); MONO % 8.2 % (2.0-8.0); NEUTROPHILS # 2.7 10^3/uL (1.5-8.5); NEUTROPHILS % 60.8 % (36.0-66.0); PLATELET COUNT, AUTOMATED 173 10^3/uL (150-450); RED BLOOD COUNT 4.26 10^6/uL (4.00-5.40); WHITE BLOOD COUNT 4.5 10^3/uL (4.0-10.0)
[2024-11-29 18:11] LABS: KETONE, URINE AUTO RFX NEGATIVE (NEGATIVE); MUCUS, URINE RFX SMALL (NEGATIVE); NITRITE, URINE AUTO RFX NEGATIVE (NEGATIVE); RBC, URINE AUTO RFX TNTC /HPF (0-3); SQUAM EPITHELIAL CELL UR AURFX 4 /HPF (0-6)
[2024-11-29 18:12] LABS: LEUKOCYTE ESTERASE UR AUTO RFX 1+ (NEGATIVE); WBC, URINE AUTO RFX 14 /HPF (0-3)
[2024-11-29 18:32] LABS: LIPASE 23 U/L (12-53)
[2024-11-29 18:33] LABS: ALBUMIN 3.9 G/DL (3.2-5.2); ALKALINE PHOSPHATASE 60 U/L (35-104); ALT/SGPT 20 U/L (7.0-40); AST/SGOT 17 U/L (<34); BILIRUBIN,DIRECT 0.1 MG/DL (<0.4); BILIRUBIN,TOTAL 0.5 MG/DL (0.3-1.2); BLOOD UREA NITROGEN 11 MG/DL (9-23); CALCIUM LEVEL 9.3 MG/DL (8.5-10.1); CARBON DIOXIDE LEVEL 27 MMOL/L (20-31); CHLORIDE LEVEL 108 MMOL/L (98-107); CREATININE FOR GFR 0.69 MG/DL (0.55-1.30); GLOMERULAR FILTRATION RATE > 90.0 (>60); GLUCOSE, FASTING 80 MG/DL (60-100); POTASSIUM SERUM 4.2 MMOL/L (3.5-5.1); SODIUM LEVEL 142 MMOL/L (136-145); TOTAL PROTEIN 7.1 G/DL (5.7-8.2)
[2024-11-29 18:40] LABS: HCG, SERUM QUALITATIVE NEGATIVE (NEGATIVE)
[2024-11-29] MEDS ORDERED: ISOVUE-370 76% 100ML VIAL As Ordered ONE (18:43)
[2024-11-29] MEDS: KETOROLAC 30 MG/ML 1ML VIAL IV ONE (19:48)
[2024-11-29 21:50] LABS: GC DNA AMPLIFICATION NEGATIVE (NEGATIVE)
[2024-11-29 22:08] VITALS: BP 115/62; TEMP 98.2; O2SAT 100
== END 2024-11-29 22:10 | disposition home or self-care (01) ==
LOC: M ED 16:29
DX: N20.0 Calculus of kidney (principal); R30.0 Dysuria; N13.30 Unspecified hydronephrosis; R31.9 Hematuria, unspecified; I10 Essential (primary) hypertension; N80.00 Endometriosis of the uterus, unspecified; F41.9 Anxiety disorder, unspecified; F32.A Depression, unspecified; Z88.1 Allergy status to other antibiotic agents; Z79.1 Long term (current) use of non-steroidal anti-inflammatories (NSAID); Z79.810 Long term (current) use of selective estrogen receptor modulators (SERMs)
CPT/HCPCS: 74177; 80048; 80076; 81001; 83690; 84703; 85025; 87086; 87210; 87810; 87850; 96374; 99284; J1885; Q9967

== ENCOUNTER → 2024-12-11 | Outpatient (REF) | payer OTHER ==
[~2024-12-11] MED LIST changes: +BUSP5TA PO; +FLOM0.4C39 PO; +LISI10TA22 PO
[2024-12-11 15:04] LABS: APPEARANCE, URINE HAZY (CLEAR); BACTERIA, URINE AUTO NEGATIVE (NEGATIVE); BILIRUBIN, URINE AUTO NEGATIVE (NEGATIVE); BLOOD, URINE BLOOD 3+ (NEGATIVE); COLOR, URINE YELLOW (YELLOW); GLUCOSE, URINE (UA) AUTO NEGATIVE (NEGATIVE); KETONE, URINE AUTO NEGATIVE (NEGATIVE); LEUKOCYTE ESTERASE, URINE AUTO 3+ (NEGATIVE); MUCUS, URINE SMALL (NEGATIVE); NITRITE, URINE AUTO NEGATIVE (NEGATIVE); PROTEIN, URINE AUTO 2+ mg/dL (NEGATIVE); RBC, URINE AUTO 96 /HPF (0-3); SPECIFIC GRAVITY URINE AUTO 1.011 (1.002-1.035); SQUAMOUS EPITHELIAL CELL UR AU 0 /HPF (0-6); UROBILINOGEN, URINE AUTO 0.2 mg/dL (0.0-2.0); WBC, URINE AUTO 67 /HPF (0-3)
== END ==
LOC: M LAB REF 14:22
PROVIDERS: ATTEND Nurse Practitioner Family
DX: Z01.818 Encounter for other preprocedural examination (principal)

== ENCOUNTER 2024-12-13 07:35 | Day surgery (SDC) | payer OTHER ==
[~2024-12-13] VITALS: Ht 175.3 cm; Wt 101.1 kg
[~2024-12-13 07:35] MED LIST changes: -BUSP5TA PO; -FLOM0.4C39 PO; -LISI10TA22 PO
[2024-12-13] MEDS ORDERED: BUSP5TA PO (08:07)
[2024-12-13] MEDS ORDERED: LISI10TA22 PO (08:07)
[2024-12-13] MEDS ORDERED: propofoL 200 MG/20 ML VIAL As Ordered ONE (08:23)
[2024-12-13] MEDS ORDERED: fentaNYL 100 MCG/2 ML INJECTION As Ordered ONE (08:23)
[2024-12-13] MEDS ORDERED: MIDAZOLAM INJ 2MG/2ML VIAL As Ordered ONE (08:23)
[2024-12-13] MEDS ORDERED: ONDANSETRON 4MG 2ML VIAL As Ordered ONE (08:23)
[2024-12-13] MEDS ORDERED: LIDOCAINE 2% 100MG/5ML SDV (FOR ANES.) As Ordered ONE (08:23)
[2024-12-13] MEDS ORDERED: dexmedeTOMIDine (4MCG/ML)200MCG/50ML BTL (PRECEDEX) As Ordered ONE (08:30)
[2024-12-13] MEDS: ceFAZolin SOD 2 GM IV ONCE IV ONE (09:20)
[2024-12-13] MEDS: ISOVUE-300 61% 100ML VIAL As Ordered ONE (09:42)
[2024-12-13] MEDS ORDERED: ePHEDrine SULFATE 25 MG/5 ML(5MG/ML) SYRINGE As Ordered ONE (09:42)
[2024-12-13] MEDS ORDERED: ACETAMINOPHEN 1000MG/100ML IV BAG As Ordered ONE (09:54)
[2024-12-13] MEDS ORDERED: MEPERIDINE 25 MG/ML 1ML VIAL IV PRN (10:50)
[2024-12-13] MEDS ORDERED: LR 1,000 ML IV SCH (10:50)
[2024-12-13] MEDS ORDERED: METOCLOPRAMIDE INJ 10MG/2ML VIAL IV PRN (10:50)
[2024-12-13] MEDS ORDERED: diphenhydrAMINE 50MG/ML VIAL IV PRN (10:50)
[2024-12-13] MEDS ORDERED: TAMS-18 PO (11:34)
[2024-12-13] MEDS ORDERED: PERCOCET 5MG/325MG TAB PO PRN (11:35)
[2024-12-13] MEDS: fentaNYL 100 MCG/2 ML INJECTION IV PRN (11:37)
[2024-12-13] MEDS: ONDANSETRON 4MG 2ML VIAL IV PRN (11:38)
[2024-12-13] MEDS: oxyCODONE 5MG TAB PO PRN (12:07)
[2024-12-13 14:00] VITALS: BP 145/67; TEMP 98.1; O2SAT 100
== END 2024-12-13 14:00 | disposition home or self-care (01) ==
LOC: M SDC 07:35
PROVIDERS: ATTEND Urology
DX: N20.0 Calculus of kidney (principal); I10 Essential (primary) hypertension; G40.509 Epileptic seizures related to external causes, not intractable, without status epilepticus; Z79.899 Other long term (current) drug therapy
CPT/HCPCS: 52356; 76000; 81025; 82365; C1769; C1894; C2617; J0131; J0690; J1100; J2250; J2405; J3010; Q9967

== ENCOUNTER 2025-05-20 11:58 | Emergency (ER) | payer OTHER ==
[~2025-05-20 11:58] MED LIST changes: +BUSP5TA PO; +LISI10TA22 PO; +TAMS-18 PO
[2025-05-20 13:13] LABS: BASO # 0.0 10^3/uL (0.0-0.2); BASO % 0.2 % (0.0-1.0); EOS # 0.0 10^3/uL (0.0-0.5); EOS % 0.2 % (0.0-3.0); LYMPH # 1.1 10^3/uL (1.5-5.0); LYMPH % 20.7 % (24.0-44.0); MONO # 0.2 10^3/uL (0.0-0.8); MONO % 4.3 % (2.0-8.0); NEUTROPHILS # 4.0 10^3/uL (1.5-8.5); NEUTROPHILS % 74.2 % (36.0-66.0); PLATELET COUNT, AUTOMATED 344 10^3/uL (150-450)
[2025-05-20 13:18] VITALS: BP 145/69
[2025-05-20] MEDS: MIDAZOLAM INJ 2 MG/2 ML VIAL IV ONE ×2 (13:18→18:15)
[2025-05-20] MEDS: NS (Normal Saline) 0.9% 1,000 ML IV ONE (13:19)
[2025-05-20 13:26] LABS: INR 1.0
[2025-05-20 13:36] LABS: ALT/SGPT 20 U/L (7.0-40); AST/SGOT 21 U/L (<34); CALCIUM LEVEL 9.8 MG/DL (8.5-10.1); CARBON DIOXIDE LEVEL 21 MMOL/L (20-31); CHLORIDE LEVEL 106 MMOL/L (98-107); CREATININE FOR GFR 0.64 MG/DL (0.55-1.30); GLOMERULAR FILTRATION RATE > 90.0 (>60); MAGNESIUM LEVEL 1.8 MG/DL (1.8-2.4); PHOSPHORUS LEVEL 1.7 MG/DL (2.5-4.9); POTASSIUM SERUM 3.8 MMOL/L (3.5-5.1); SODIUM LEVEL 136 MMOL/L (136-145)
[2025-05-20 13:39] LABS: FREE T4 0.86 NG/DL (0.89-1.76); HCG, SERUM QUALITATIVE NEGATIVE (NEGATIVE)
[2025-05-20] MEDS: NEUTRA-PHOS 1.5 GM PACKET PO ONE (14:34)
[2025-05-20 16:06] LABS: AMPHETAMINES LEVEL URINE NEGATIVE (NEGATIVE); BARBITURATES URINE NEGATIVE (NEGATIVE); CANNABINOIDS URINE NEGATIVE (NEGATIVE); COCAINE METABOLITE URINE NEGATIVE (NEGATIVE); METHADONE URINE NEGATIVE (NEGATIVE); OPIATES URINE NEGATIVE (NEGATIVE); PHENCYCLIDINE URINE NEGATIVE (NEGATIVE)
[2025-05-20 16:12] LABS: BENZODIAZEPINES URINE POSITIVE (NEGATIVE)
[2025-05-20 20:30] VITALS: O2SAT 99
[2025-05-20 20:45] VITALS: BP 124/75; TEMP 98.1
== END 2025-05-20 21:48 | disposition short-term general hospital (02) ==
LOC: M ED 11:58
DX: F11.23 Opioid dependence with withdrawal (principal); R20.2 Paresthesia of skin; F41.9 Anxiety disorder, unspecified; F32.A Depression, unspecified; Z88.1 Allergy status to other antibiotic agents; Z79.899 Other long term (current) drug therapy
CPT/HCPCS: 70450; 70551; 71046; 72141; 80048; 80076; 80307; 83735; 84100; 84439; 84443; 84703; 85025; 85610; 85730; 93005; 93041; 94760; 96374; 96375; 99285; J2250

== ENCOUNTER 2025-06-13 17:52 | Emergency (ER) | payer OTHER ==
[~2025-06-13] VITALS: Ht 172.7 cm; Wt 95.9 kg
[2025-06-13 18:01] VITALS: TEMP 98.6
[2025-06-13 18:29] LABS: PLATELET COUNT, AUTOMATED 210 10^3/uL (150-450)
[2025-06-13 18:31] LABS: ETHYL ALCOHOL (ETHANOL) < 0.003 % (0.000-0.010); HCG, SERUM QUALITATIVE NEGATIVE (NEGATIVE)
[2025-06-13 18:33] LABS: ALT/SGPT 17 U/L (7.0-40); AST/SGOT 17 U/L (<34); CALCIUM LEVEL 8.8 MG/DL (8.5-10.1); CARBON DIOXIDE LEVEL 26 MMOL/L (20-31); CHLORIDE LEVEL 108 MMOL/L (98-107); CREATININE FOR GFR 0.83 MG/DL (0.55-1.30); GLOMERULAR FILTRATION RATE > 90.0 (>60); POTASSIUM SERUM 3.9 MMOL/L (3.5-5.1); SALICYLATE LEVEL < 3.0 MG/DL (<30); SODIUM LEVEL 144 MMOL/L (136-145)
[2025-06-13 19:22] LABS: AMPHETAMINES LEVEL URINE NEGATIVE (NEGATIVE); BARBITURATES URINE NEGATIVE (NEGATIVE); BENZODIAZEPINES URINE NEGATIVE (NEGATIVE); METHADONE URINE NEGATIVE (NEGATIVE); OPIATES URINE NEGATIVE (NEGATIVE); PHENCYCLIDINE URINE NEGATIVE (NEGATIVE)
[2025-06-13 19:26] LABS: CANNABINOIDS URINE POSITIVE (NEGATIVE); COCAINE METABOLITE URINE POSITIVE (NEGATIVE)
[2025-06-13] MEDS: ONDANSETRON 4MG/2ML VIAL IV ONE (19:48)
[2025-06-13] MEDS: ACETAMINOPHEN *IV* 1,000 MG in IV 1 EA IV ONE (19:48)
[2025-06-13] MEDS: NS (Normal Saline) 0.9% 1,000 ML IV ONE (19:49)
[2025-06-14] VITALS: BP 130/96; O2SAT 100
[2025-06-14] MEDS ORDERED: OVERDOSE RESCUE KIT XX SCH (01:45)
== END 2025-06-14 02:11 | disposition home or self-care (01) ==
LOC: M ED 17:52
DX: F17.210 Nicotine dependence, cigarettes, uncomplicated (principal); F11.10 Opioid abuse, uncomplicated
CPT/HCPCS: 80047; 80048; 80076; 80143; 80307; 82077; 84703; 85027; 93005; 96365; 96366; 96375; 99285; J0131; J2405